=== PATIENT | female | born 1985 | race Caucasian/White ===

== ENCOUNTER → 2022-10-31 14:34 | Outpatient (BNVA) | payer BC, SELFPAY | PROVIDERS: PCP Internal Medicine; Visit Provider Nurse Practitioner Family | DX: Z13.89 Encounter for screening for other disorder (principal) ==

== ENCOUNTER 2023-03-21 07:49 | Outpatient (AMB) | payer BC, SELFPAY ==
[2023-03-21 07:52] VITALS: PULSE 75; O2SAT 98; BMI 41.9
--- NOTE | 2023-03-21 07:52 | MHC.OFFVIS ---
Intake Vital Signs 03/21/23 07:52 Height 5 ft 9 in Weight 284 lb BMI 41.9 Position Sitting Pulse 75 Pulse Source Pulse Oximeter Pulse Oximetry (%) 98 Oxygen Delivery Method Room Air Intake Visit Reasons: 2 mo f/u -Migraine Intake Note: Pt presents as a 2 month f/u for Migraines. Pt states no concerns. Retarder Operator Required: No Allergies apple fiber Allergy (Unknown, Uncoded 03/21/23 07:57) Diarrhea Medication List - Last Reconciled 03/21/23 by GUCCI Blancas alprazolam 0.25 mg orally 1 tab 30 minutes prior to MRI, january repeat x's 1; 1 day atorvastatin 10 mg PO DAILY fluocinolone 0.01% topical ibuprofen 800 mg PO TID levothyroxine 175 mcg PO DAILY magnesium oxide 400 mg PO BEDTIME 30 days norethindrone-e.estradiol-iron 1 mg-20 mcg (21)/75 mg (7) (09/27 (28)) tabs PO nystatin-triamcinolone 100,000-0.1 unit/g-% appl topical riboflavin (vitamin B2) 400 mg PO DAILY 30 days sumatriptan succinate 50 mg PO tacrolimus 0.1% 1 appl topical BID HPI HPI Comments History of Present Illness Details 37-yr-old female presents for f/u visit. Pt denies any significant interval medical changes. Pt reports she has not had any severe migraines or migraine w/ aura. She continues to have mild headaches. She is tolertaing Mag and B2 well. She has not needed to try Sumatriptan yet. She has numbness/tingling usually not a/w w/ LIN [facility] Medical History (Updated 03/21/23 @ 08:25 by GUCCI Blancas) Graves' disease HLD (hyperlipidemia) Surgical History History of section Family History Mother Diabetes Psoriasis Hypertension High cholesterol Father History of thyroid disorder Heart disease Daughter Asthma Social History (Updated 03/21/23 @ 08:00 by Amanda Villatoro CMA) Alcohol intake: current Alcohol intake frequency: holidays/special occasions only Patient Tobacco Use Status: Never used Tobacco Review of Systems Const All systems reviewed & are unremarkable except as noted in HPI and below Physical Exam Vital Signs: Last Vital Signs Pulse 75 03/21/23 07:52 Pulse Ox 98 03/21/23 07:52 Oxygen Delivery Method Room Air 03/21/23 07:52 BMI result Body Mass Index 41.9 Const General: cooperative and no acute distress Orientation/consciousness: patient oriented x3 HEENT Head: Yes normocephalic Resp Effort & Inspection: normal respiratory effort and able to speak in complete sentences Neuro General: patient oriented x3, gait normal and CN's II-XI intact bilaterally Cognition (Neuro): normal cognition Motor exam (neuro): 5/5 motor strength present throughout Psych Appearance: grossly normal Mental Status: mental status grossly normal Speech and movement: Normal speech and movement present Affect: normal affect Attitude: cooperative Thought process: Normal thought process present Thought content: Normal thought content present Insight: Good insight present (Psych) Judgement: Good judgement present (Psych) Assessment & Plan Assessment & Plan (1) Headache: Code(s): R51.9 - Headache, unspecified (2) Migraine without aura: Code(s): G43.009 - Migraine without aura, not intractable, without status migrainosus (3) Migraine with aura: Code(s): G43.109 - Migraine with aura, not intractable, without status migrainosus (4) Paresthesias: Code(s): R20.2 - Paresthesia of skin Plan Brain MRI was denied, will re-request to obtain baseline brain MRI wo- as pt has headaches, migraine headcahe a/w parestehsias, vision loss, HLD, Graves disease- requires open MRI w/ pre-med w/ xanax. For overall headache management: Continue optimizing good self-care, including but not limited to maintaining a healthy diet,? adequate fluid intake, adequate sleep, and engaging in regular physical activity. For headache triggers: Track headaches, especially after any treatment regimen changes. Migraine Budd[employer] is one of many headache tracking apps. For acute headache treatment: Discussed importance of taking acute medications at the first sign of headache, however stressed importance of avoiding acute medication overuse (especially with combined headache medications). Trial Sumatriptan 50mg at onset of migraine, may repeat in 2 hrs- has supply at home. May take w/ Ibuprofen 600mg prn. Previous acute migraine medication trials: Ibuporefn- effect varies Acute migraine medication contraindications: None at this time For headache prevention medication: Continue Riboflavin 400mg qam Continue Magnesium 400mg qhs Previous migraine prevention medication trials: No other Migraine prevention medication contraindications: None at this time Information also given on non-pharmacological interventions, such as Cefaly or Nerivio neuromodulation devices. f/u in 6 months or sooner prn Orders: Orders MR head/brain wo con 05/09/23 E05.00 - Thyrotoxicosis with diffuse goiter without thyrotoxic crisis or storm, E78.5 - Hyperlipidemia, unspecified, R20.2 - Paresthesia of skin, R51.9 - Headache, unspecified Coding Level of Care Code Est Pt Level 4 (66141) Diagnoses Headache R51.9 Migraine without aura G43.009 Migraine with aura G43.109 Paresthesias R20.2
== END 2023-03-21 08:33 | disposition home or self-care (01) ==
LOC: HO.HSMS 07:49
PROVIDERS: PCP Internal Medicine; Visit Provider Nurse Practitioner Family
DX: G43.009 Migraine without aura, not intractable, without status migrainosus (principal); R20.2 Paresthesia of skin
CPT/HCPCS: 99214

== ENCOUNTER → 2023-03-21 07:49 | Outpatient (BNVA) | payer BC, SELFPAY | PROVIDERS: PCP Internal Medicine; Visit Provider Nurse Practitioner Family ==

== ENCOUNTER 2023-09-24 07:59 | Outpatient (AMB) | payer BC, SELFPAY ==
--- NOTE | 2023-09-24 08:02 | A.OFFVIS_ITS ---
Intake Vital Signs 09/24/23 08:03 Height 5 ft 9 in Weight 284 lb BMI 41.9 BP 124/72 Blood Pressure Location Rt brachial Position Sitting Pulse 74 Pulse Source Pulse Oximeter Pulse Oximetry (%) 98 Oxygen Delivery Method Room Air Intake Visit Reasons: 6m follow up Migraine-Confirmed Intake Note: Patient presents for migraines follow up. I've had a couple and only had one major one Allergies apple fiber Allergy (Unknown, Uncoded 09/24/23 08:05) Diarrhea Medication List - Last Reconciled 09/24/23 by GUCCI Blancas alprazolam 0.25 mg orally 1 tab 30 minutes prior to MRI, january repeat x's 1; 1 day atorvastatin 10 mg PO DAILY fluocinolone 0.01% topical ibuprofen 800 mg PO TID levothyroxine 175 mcg PO DAILY magnesium oxide 400 mg PO BEDTIME 30 days norethindrone-e.estradiol-iron 1 mg-20 mcg ()/75 mg (7) (09/27 (28)) tabs PO nystatin-triamcinolone 100,000-0.1 unit/g-% appl topical riboflavin (vitamin B2) 400 mg PO DAILY 30 days sumatriptan succinate 50 mg PO tacrolimus 0.1% 1 appl topical BID HPI HPI Comments History of Present Illness Details 38-yr-old female presents for f/u visit. Pt denies any significant interval medical changes. 09/13/2023, at [facility], brain MRI without co ntrast: No acute intracranial process. Small bilateral maxillary sinus air-fluid levels. Pt denies any recent sinus pain/pressure, URI s/s. Pt reports her mild migraines have been stable. Having occasional mild migraine. She has had 1 severe migraine since her last visit 6 months ago. She took [id number] analgesics for this, but she thought it was too early to try the sumatriptan. It took hours for the ibuprofen to start to work. Migraines are still triggered by stress. She has not yet tried sumatriptan. Baseline headache characteristics: Mild 3-4/10, severe 101/10 Right frontal pain- can be throbbing or stabbing or both, a/w Seeing black spots, photophobia, osmophobia (but has this all the time), nausea, fatigue. Has had a few severe attacks also a/w vision loss, numbness/tingling in her lips and hands, HTN. [facility] Medical History (Updated 03/21/23 @ 08:25 by GUCCI Blancas) HLD (hyperlipidemia) Graves' disease Surgical History History of section Family History Mother Diabetes Psoriasis Hypertension High cholesterol Father History of thyroid disorder Heart disease Daughter Asthma Social History Alcohol intake: current Alcohol intake frequency: holidays/special occasions only Patient Tobacco Use Status: Never used Tobacco Physical Exam Vital Signs: Last Vital Signs Pulse 74 09/24/23 08:03 BP 124/72 09/24/23 08:03 Pulse Ox 98 09/24/23 08:03 Oxygen Delivery Method Room Air 09/24/23 08:03 BMI result Body Mass Index 41.9 Const General: cooperative and no acute distress Orientation/consciousness: patient oriented x3 Resp Effort & Inspection: normal respiratory effort and able to speak in complete sentences Neuro General: patient oriented x3 and moves all extremities Cognition (Neuro): normal cognition Psych Appearance: grossly normal Mental Status: mental status grossly normal Speech and movement: Normal speech and movement present Affect: normal affect Attitude: cooperative Assessment & Plan Assessment & Plan (1) Migraine with aura: Code(s): G43.109 - Migraine with aura, not intractable, without status migrainosus (2) Migraine without aura: Code(s): G43.009 - Migraine without aura, not intractable, without status migrainosus Plan Reviewed brain MRI: Unremarkable. There is finding of small bilateral maxillary sinus sinus air-fluid levels, patient currently denies any sinus related symptoms. Patient advised to follow-up with PCP or urgent care if she develops an ? For overall headache management: Continue optimizing good self-care, including but not limited to maintaining a healthy diet,? adequate fluid intake, adequate sleep, and engaging in regular physical activity. For headache triggers: Track headaches, especially after any treatment regimen changes. Mig[employer] is one of many headache tracking apps. ? For acute headache treatment: Again trial Sumatriptan, will adjust ordered to 100 mg tab as when her migraine is severe it can be debilitating. 100mg at onset of migraine, may repeat in 2 hrs (max 200mg/day).. May take w/ Ibuprofen 600-800mg prn. Previous acute migraine medication trials: Ibuporefn- effect varies Acute migraine medication contraindications: None at this time ? For headache prevention medication: Continue Riboflavin 400mg qam Continue Magnesium 400mg qhs Previous migraine prevention medication trials: No other Migraine prevention medication contraindications: None at this time Information also given on non-pharmacological interventions, such as Cefaly or Nerivio neuromodulation devices. ? f/u in 6 months or sooner prn This note is constructed using voice recognition software. While every effort has been made to ensure accuracy, statistical programmer analyst errors may have been included. Medications: New sumatriptan succinate (0.5 - 1 x 100 mg) 50 - 100 mg orally at onset of headache, may repeat in 2 hrs PRN; max 2 tabs per day or 4 tabs/week (may take with Ibuprofen) 30 days 12 tabs 6RF migraine headache Coding Level of Care Code Est Pt Level 4 (23581) Diagnoses Migraine with aura G43.109 Migraine without aura G43.009
[2023-09-24 08:03] VITALS: BP 124/72; PULSE 74; O2SAT 98; BMI 41.9
== END 2023-09-24 08:31 | disposition home or self-care (01) ==
PROVIDERS: PCP Nurse Practitioner; Visit Provider Nurse Practitioner Family
DX: G43.109 Migraine with aura, not intractable, without status migrainosus (principal); G43.009 Migraine without aura, not intractable, without status migrainosus
CPT/HCPCS: 99214

== ENCOUNTER → 2023-09-24 07:59 | Outpatient (BNVA) | payer BC, SELFPAY | PROVIDERS: PCP Nurse Practitioner; Visit Provider Nurse Practitioner Family | DX: R20.2 Paresthesia of skin (principal); E05.00 Thyrotoxicosis with diffuse goiter without thyrotoxic crisis or storm; E78.5 Hyperlipidemia, unspecified; R51.9 Headache, unspecified ==

== ENCOUNTER 2024-03-24 07:52 | Outpatient (AMB) | payer BC, SELFPAY ==
[2024-03-24 07:54] VITALS: BP 126/78; PULSE 73; O2SAT 99; BMI 41.8
--- NOTE | 2024-03-24 07:54 | MHC.OFFVIS ---
Vital Signs 03/24/24 07:54 Height 5 ft 9 in Weight 283 lb BMI 41.8 BP 126/78 Blood Pressure Location Rt brachial Position Sitting Pulse 73 Pulse Source Pulse Oximeter Pulse Oximetry (%) 99 Oxygen Delivery Method Room Air Intake Visit Reasons: 6 mo f/u -CONF Intake Note: Patient presents for 6 month follow up. patient just has questions on supplements Allergies apple fiber Allergy (Unknown, Uncoded 03/24/24 07:57) Diarrhea Medication List - Last Reconciled 03/24/24 by GUCCI Blancas alprazolam 0.25 mg orally 1 tab 30 minutes prior to MRI, may repeat x's 1; 1 day atorvastatin 10 mg PO DAILY fluocinolone 0.01% topical ibuprofen 800 mg PO TID levothyroxine 175 mcg PO DAILY magnesium oxide 400 mg PO BEDTIME 30 days norethindrone-e.estradiol-iron 1 mg-20 mcg ()/75 mg (7) (09/27 ()) tabs PO nystatin-triamcinolone 100,000-0.1 unit/g-% appl topical riboflavin (vitamin B2) 400 mg PO DAILY 30 days sumatriptan succinate 50 - 100 mg orally at onset of headache, may repeat in 2 hrs PRN; max 2 tabs per day or 4 tabs/week (may take with Ibuprofen) 30 days tacrolimus 0.1% 1 appl topical BID HPI Comments Details: 38-yr-old female presents for f/u visit. Pt denies any significant interval medical changes. She has had increased headaches in the past month, 1 severe attack per week. Tried Sumatriptan, helps depending on when she takes it- but does not always have it. She attributes this to stress- mostly relating to her work- works in [employer]. She is not currently seeing a therapist currently- feels she should. She would like to exercise more- but finds it difficult to find the time. Baseline headache characteristics: Mild 3-4/10, severe 101/10 Right frontal pain- can be throbbing or stabbing or both, a/w Seeing black spots, photophobia, osmophobia (but has this all the time), nausea, fatigue. Has had a few severe attacks also a/w vision loss, numbness/tingling in her lips and hands, HTN. [facility] Medical History (Updated 03/21/23 @ 08:25 by GUCCI Blancas) HLD (hyperlipidemia) Graves' disease Surgical History History of section Family History Mother Diabetes Psoriasis Hypertension High cholesterol Father History of thyroid disorder Heart disease Daughter Asthma Social History Alcohol intake: current Alcohol intake frequency: holidays/special occasions only Patient Tobacco Use Status: Never used Tobacco Physical Exam Vital Signs: Last Vital Signs Pulse 73 03/24/24 07:54 BP 126/78 03/24/24 07:54 Pulse Ox 99 03/24/24 07:54 Oxygen Delivery Method Room Air 03/24/24 07:54 BMI result Body Mass Index 41.8 Const General: cooperative and no acute distress Orientation/consciousness: patient oriented x3 Resp Effort & Inspection: normal respiratory effort and able to speak in complete sentences Neuro General: patient oriented x3 Cranial nerves: Yes CN's II-XII intact bilaterally Cognition (Neuro): normal cognition Psych Appearance: grossly normal Mental Status: mental status grossly normal Speech and movement: Normal speech and movement present Affect: normal affect Attitude: cooperative Assessment & Plan Assessment & Plan (1) Migraine with aura: Code(s): G43.109 - Migraine with aura, not intractable, without status migrainosus Category: Medical (2) Migraine without aura: Code(s): G43.009 - Migraine without aura, not intractable, without status migrainosus Category: Medical (3) Stress at work: Code(s): Z56.6 - Other physical and mental strain related to work Category: Social Hx Plan For overall headache management: Continue optimizing good self-care, including but not limited to maintaining a healthy diet,? adequate fluid intake, adequate sleep, and engaging in regular physical activity. For headache triggers: Track headaches, especially after any treatment regimen changes. Concur w/ starting psychotherapy- pt states she knows how to find a therapist. Try scheduling in routine exercise. ? For acute headache treatment: Continue Sumatriptan, will adjust ordered to 100 mg tab as when her migraine is severe it can be debilitating. 100mg at onset of migraine, may repeat in 2 hrs (max 200mg/day).. May take w/ Ibuprofen 600-800mg prn. Previous acute migraine medication trials: Ibuprofen- effect varies Acute migraine medication contraindications: None at this time ? For headache prevention medication: Continue Riboflavin 400mg qam Continue Magnesium 400mg qhs Trial adding Topiramate 25-50mg qhs. Previous migraine prevention medication trials: No other Migraine prevention medication contraindications: None at this time Information also given on non-pharmacological interventions, such as Cefaly or Nerivio neuromodulation devices. ? f/u in 6 months or sooner prn Medications: New topiramate 25 - 50 mg (1 - 2 x 25 mg) PO BEDTIME 30 days 60 tabs 3RF Coding Level of Care Code Est Pt Level 4 (96203) Diagnoses Migraine with aura G43.109 Migraine without aura G43.009 Stress at work Z56.6
== END 2024-03-24 08:46 | disposition home or self-care (01) ==
PROVIDERS: PCP Nurse Practitioner; Visit Provider Nurse Practitioner Family
DX: G43.109 Migraine with aura, not intractable, without status migrainosus (principal); G43.009 Migraine without aura, not intractable, without status migrainosus; Z56.6 Other physical and mental strain related to work
CPT/HCPCS: 99214

== ENCOUNTER → 2024-03-24 07:52 | Outpatient (BNVA) | payer BC, SELFPAY | PROVIDERS: PCP Nurse Practitioner; Visit Provider Nurse Practitioner Family ==